=== PATIENT | female | born 1980 | race Hispanic/Latino ===

== ENCOUNTER 2025-01-22 05:53 | Day surgery (SDC) | payer OTHER ==
[2025-01-17 08:22] VITALS: BMI 41.5
[2025-01-17 09:09] LABS: Hematocrit 37.7 % (34.9-44.5); Hemoglobin 13.1 g/dL (12.0-15.5); Mean Corpuscular Hemoglobin 30.8 pg (27.0-33.0); Mean Corpuscular Volume 88.7 fL (81.6-98.3); Platelet Count 285 10x3/uL (150-450); Red Blood Cell (RBC) Count 4.25 10x6/uL (3.90-5.03); White Blood Cell (WBC) Count 6.59 10x3/uL (3.5-10.5)
[2025-01-17 09:21] LABS: BHCG - Serum Negative (NEGATIVE); Pregs Control Background? CLEAR/WHITE (CLR/WHITE); Pregs Control Bar Appear? YES (CONTROL BAR)
[2025-01-22] MEDS ORDERED: Gabapentin 300 MG CAP ONE (06:27)
[2025-01-22] MEDS ORDERED: Famotidine/PF 20 mg/2ml Vial ONE (06:27)
[2025-01-22] MEDS ORDERED: PROPOFOL 40 ML ONE (06:49)
[2025-01-22] MEDS ORDERED: Ondansetron PF 4 MG/2 ML Vial ONE (06:49)
[2025-01-22] MEDS ORDERED: Lidocaine 1% PF 5 ML VIAL ONE (06:49)
[2025-01-22] MEDS ORDERED: SUGAMMADEX SODIUM 200 MG/2 ML VIAL ONE (06:49)
[2025-01-22] MEDS ORDERED: Rocuronium Bromide 10 MG/ML (10ML VIAL) ONE (06:49)
[2025-01-22] MEDS ORDERED: Oxytocin 10 UNITS/ML VIAL ONE (06:56)
[2025-01-22] MEDS ORDERED: Bupivacaine HCl 0.5%/Epinephrine 1:200,000/PF 30 ml Vial ONE (06:56)
[2025-01-22] MEDS ORDERED: CEFAZOLIN 2 GM VIAL ONE (07:23)
[2025-01-22] MEDS ORDERED: metroNIDAZOLE 500 MG (100 mL) BAG ONE (07:37)
[2025-01-22] MEDS ORDERED: PHENYLEPHRINE-NS 100 MCG/ML 10 ML SYRINGE ONE (08:02)
[2025-01-22] MEDS ORDERED: HYDROcodone/Acetaminophen 10/325 mg Tablet ONE (10:25)
== END 2025-01-22 15:20 | disposition home or self-care (01) ==
LOC: CSHSDC 05:53
PROVIDERS: ATTEND Student in an Organized Health Care Education/Training Program
DX: D25.1 Intramural leiomyoma of uterus (principal); N80.03 Adenomyosis of the uterus; N87.9 Dysplasia of cervix uteri, unspecified
CPT/HCPCS: 36415; 84703; 85027; 86850; 86900; 86901; 88307; J1100; J1308; J2250; J2405; J2590; J2704; J3010; S2900